=== PATIENT | female | born 1975 | race Caucasian/White ===

== ENCOUNTER 2017-04-16 18:32 | Inpatient (IN) | payer BC, OTHER ==
[~2017-04-16] VITALS: Ht 170.2 cm; Wt 56.2 kg
[2017-04-16] MEDS ORDERED: DICYCLOMINE HCL 20 MG TABLET PO PRN (19:45)
[2017-04-16] MEDS ORDERED: THIAMINE HCL 200 MG/2 ML VIAL IM ONE (19:45)
[2017-04-16] MEDS ORDERED: ACETAMINOPHEN 325 MG TABLET PO PRN (19:45)
[2017-04-16] MEDS ORDERED: diphenhydrAMINE 50 MG CAPSULE PO PRN (19:45)
[2017-04-16] MEDS ORDERED: LOPERAMIDE HCL 2 MG CAPSULE PO PRN ×2 (19:45)
[2017-04-16] MEDS ORDERED: MAGNESIUM HYDROXIDE 30 ML LIQUID UDC PO PRN (19:45)
[2017-04-16] MEDS ORDERED: CLONIDINE HCL 0.1 MG TABLET PO PRN (19:45)
[2017-04-16] MEDS ORDERED: LORAZEPAM 2 MG/1 ML VIAL IM PRN (19:45)
[2017-04-16] MEDS ORDERED: MAG HYDROX/AL HYDROX/SIMETH 30 ML LIQUID UDC PO PRN (19:45)
[2017-04-16] MEDS ORDERED: MIRALAX 17 GM POWD.PACK PO PRN (19:45)
[2017-04-16] MEDS ORDERED: ONDANSETRON 4 MG/2 ML VIAL IM PRN (19:45)
[2017-04-16] MEDS ORDERED: LORAZEPAM 1 MG TABLET PO PRN ×2 (19:45)
[2017-04-16 19:59] LABS: *URINE HCG, QUAL NEGATIVE (NEGATIVE)
[2017-04-16 20:02] LABS: *AMPHETAMINE, URINE NEGATIVE (NEGATIVE); *BARBITURATE, URINE NEGATIVE (NEGATIVE); *CANNABINOID, URINE NEGATIVE (NEGATIVE); *COCCAINE, URINE NEGATIVE (NEGATIVE); *OPIATE, URINE NEGATIVE (NEGATIVE); *PHENCYCLIDINE SCREEN,URINE NEGATIVE (NEGATIVE)
[2017-04-16] MEDS: IBUPROFEN 400 MG TABLET PO PRN (20:14)
[2017-04-16] MEDS: ONDANSETRON ODT 4 MG TAB.RAPDIS SL PRN (20:14)
[2017-04-16 20:20] LABS: BASOPHILS # (AUTO) 0.1 K/uL (0.0-8.0); BASOPHILS % (AUTO) 1.9 % (0.0-2.0); EOSINOPHILS # (AUTO) 0.2 K/uL (0.0-0.7); HEMATOCRIT 39.4 % (31.2-41.9); LYMPHOCYTES # (AUTO) 2.6 K/uL (20.0-40.0); LYMPHOCYTES % (AUTO) 44.9 % (20.5-51.5); MEAN CORPUSCULAR HEMOGLOBIN 33.2 uug (24.7-32.8); MEAN CORPUSCULAR HGB CONC 35 g/dL (32.3-35.6); MEAN CORPUSCULAR VOLUME 93.7 fL (75.5-95.3); MONOCYTES # (AUTO) 0.5 K/uL (2.0-10.0); MONOCYTES % (AUTO) 7.8 % (0.0-11.0); NEUTROPHILS # (AUTO) 2.4 K/uL (1.8-8.9); NEUTROPHILS % (AUTO) 41.4 % (38.5-71.5); PLATELET COUNT (AUTO) 268 K/uL (179-408); WHITE BLOOD COUNT (AUTO) 5.8 K/uL (3.8-11.8)
[2017-04-16] MEDS ORDERED: IBUPROFEN 400 MG TABLET ONE (20:26)
[2017-04-16] MEDS ORDERED: ONDANSETRON ODT 4 MG TAB.RAPDIS ONE (20:26)
[2017-04-16] MEDS ORDERED: LORAZEPAM 1 MG TABLET ONE (20:27)
[2017-04-16 20:44] LABS: BILIRUBIN,TOTAL 0.4 mg/dL (0.2-1.0); CREATININE 0.7 mg/dL (0.6-1.3); POTASSIUM 3.8 mmol/L (3.5-5.1); TOTAL PROTEIN, SERUM 8.3 g/dL (6.4-8.2)
[2017-04-16 20:58] LABS: THYROID STIMULATING HORMONE 2.68 mIU/mL (0.358-3.740)
[2017-04-16] MEDS ORDERED: [UNRECOGNIZED DRUG - REMARK] PO (21:23)
[2017-04-16] MEDS ORDERED: CALC-473 PO (21:23)
[2017-04-16] MEDS ORDERED: [UNRECOGNIZED DRUG - CODE] TP (21:23)
[2017-04-16] MEDS ORDERED: [UNRECOGNIZED DRUG - OTHER] PO (21:23)
[2017-04-16] MEDS ORDERED: VIVISCAL PO (21:23)
[2017-04-16] MEDS ORDERED: NAPH30DR OP (21:23)
[2017-04-16] MEDS ORDERED: CHOL200016 PO (21:23)
[2017-04-17] VITALS: BP 90/50
[2017-04-17 04:00] VITALS: BP 115/72
[2017-04-17] MEDS: IBUPROFEN 400 MG TABLET PO PRN (06:16)
[2017-04-17] MEDS: ONDANSETRON ODT 4 MG TAB.RAPDIS SL PRN (06:17)
[2017-04-17] MEDS ORDERED: LORAZEPAM 1 MG TABLET ONE (06:30)
[2017-04-17] MEDS ORDERED: IBUPROFEN 400 MG TABLET ONE (06:30)
[2017-04-17] MEDS ORDERED: ONDANSETRON ODT 4 MG TAB.RAPDIS ONE (06:31)
[2017-04-17 08:00] VITALS: BP 103/60
[2017-04-17] MEDS ORDERED: TUBERCULIN,PURIF.PROT.DERIV. 5 TU/0.1 ML TEST ID ONE (09:00)
[2017-04-17] MEDS ORDERED: MULTIVITAMINS,THERAPEUTIC TABLET PO SCH (09:00)
[2017-04-17] MEDS ORDERED: FOLIC ACID 1 MG TABLET PO SCH (09:00)
[2017-04-17] MEDS ORDERED: THIAMINE HCL 100 MG TABLET PO SCH (09:00)
[2017-04-17] MEDS ORDERED: LORAZEPAM 1 MG TABLET PO SCH (13:00)
[2017-04-17] MEDS ORDERED: GABAPENTIN 300 MG CAPSULE PO SCH ×2 (15:00→21:00)
[2017-04-18] MEDS ORDERED: LORAZEPAM 1 MG TABLET PO SCH (09:00)
[2017-04-18 13:11] LABS: HEPATITIS B SURFACE AG Negative (Negative)
[2017-04-19] MEDS ORDERED: LORAZEPAM 1 MG TABLET PO SCH (09:00)
[2017-04-20] MEDS ORDERED: LORAZEPAM 1 MG TABLET PO SCH (09:00)
[2017-04-21] MEDS ORDERED: LORAZEPAM 1 MG TABLET PO SCH (09:00)
== END 2017-04-17 11:45 | disposition left against medical advice (07) | DRG 894 ==
LOC: SRC 19:12
PROVIDERS: ADMIT Internal Medicine; ATTEND Internal Medicine
PROC: HZ2ZZZZ Detoxification Services for Substance Abuse Treatment (ICD-10-PCS; principal; 2017-04-16)
DX: F10.230 Alcohol dependence with withdrawal, uncomplicated (principal); K85.20 Alcohol induced acute pancreatitis without necrosis or infection; Y90.9 Presence of alcohol in blood, level not specified; F41.9 Anxiety disorder, unspecified; F32.9 Major depressive disorder, single episode, unspecified
CPT/HCPCS: 36415; 80307; 83690; 83735; 84443; 84703; 85025; 86580; 86592; 86705; 86803; 87340; 87806; A4663; G0480; Q0162